=== PATIENT | female | born 1975 | race Caucasian/White ===

== ENCOUNTER → 2018-01-01 | Outpatient (CLI) | payer BC ==
[2018-01-01 14:41] VITALS: BP 133/77; PULSE 88; RESP 14; TEMP 98.2; BMI 42.4
--- NOTE | 2018-01-01 15:16 | P.HPBAR ---
Bariatric H&P - History & Physicial H&P Date: 01/01/18 History & Physicial: Visit/CC: band adjustment Patient initial contact: Initial weight: 113.398 kg Initial weight in pounds: 250.00 Height: 5 ft 4 in Initial BMI: 42.9 Last weight: Current weight: 112.037 kg Current weight in pounds: 247.00 Current BMI: 42.4 [place] body weight (based on NIH guidelines): 54.431 kg Excess body weight loss: 2.3% The patient is a 42 year-old F who presents for Bariatric Assessment. Patient presents today for lab band follow. She's had issues with dysphagia and GERD for several years. 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), lap band placed 2007 , panniculectomy 2005 Past Anesthesia/Blood Transfusion Reactions: Postoperative Nausea & Vomiting ( PONV) Additional Past Anesthesia/Blood Transfusion Reaction / Comm: NO blood transfusions to date Past Psychological History: ADD/ADHD, Anxiety, Depression Additional Psychological History / Comment(s): Takes cymbalta, abilify, buspar , ativan, adderall Smoking Status: Current every day smoker Past Alcohol Use History: None Reported Additional Past Alcohol Use History / Comment(s): 1 pack/day x 14 years Past Drug Use History: None Reported Surgical - Exam Vital Signs Temp Pulse Resp BP 98.2 F 88 14 133/77 01/01/18 14:22 01/01/18 14:22 01/01/18 14:22 01/01/18 14:22 - General well developed, no distress - Eyes PERRL - ENT normal pinna - Neck no masses - Respiratory normal expansion - Cardiovascular Rhythm: regular - Abdomen Abdomen: soft, non tender Bariatric Assessment & Plan Plan: The patient's lap band was adjusted. 5 mL remove her band. She currently is 0 the band. She will follow-up in 4 weeks. Bariatric Checklist Checklist: Plan: Checklist: EGD: 1. Hiatal hernia: 2. H. Pylori: HgbA1c: Vitamin D: Smoking: Current every day smoker Primary care physician referral: sylvain Carrillo ([address] [facility]) Psychiatry clearance: Cardiology clearance: Sleep study: Diet journal: VTE risk score: VTE risk level: Rehab needs at discharge:
[2018-01-01 15:44] LABS: HCT 39.2 % (34.0-46.0); HGB 12.2 gm/dL (11.4-16.0); Hypochromasia Slight; MCH 23.6 pg (25.0-35.0); MCV 75.9 fL (80.0-100.0); Mean Platelet Volume 6.7; Microcytosis Slight; Platelet Count 405 k/uL (150-450); RBC 5.17 m/uL (3.80-5.40); RDW 15.4 % (11.5-15.5); WBC 9.9 k/uL (3.8-10.6)
[2018-01-01 15:55] LABS: ALT 40 U/L (9-52); AST 23 U/L (14-36); Albumin 4.1 g/dL (3.5-5.0); Alkaline Phosphatase 88 U/L (38-126); Anion Gap 9 mmol/L; Blood Urea Nitrogen 9 mg/dL (7-17); Calcium 9.9 mg/dL (8.4-10.2); Carbon Dioxide 26 mmol/L (22-30); Chloride 104 mmol/L (98-107); Glucose 83 mg/dL (74-99); Potassium 4.3 mmol/L (3.5-5.1); Sodium 139 mmol/L (137-145); Total Bilirubin 0.3 mg/dL (0.2-1.3); Total Protein 6.8 g/dL (6.3-8.2)
[2018-01-02 01:36] LABS: Iron Saturation 6.23 (12.00-45.00)
[2018-01-02 01:44] LABS: Folate, Serum 13.6 ng/mL; Vitamin D 25 Hydroxy 68.3 ng/mL (30.0-100.0)
[2018-01-03 09:05] LABS: Vitamin A 37 ug/dL (38-106)
[2018-01-03 09:29] LABS: Vitamin B1 60 ug/L (38-122)
== END | disposition home or self-care (01) ==
LOC: BARWHC3 13:49
PROVIDERS: ATTEND Surgery
DX: Z46.51 Encounter for fitting and adjustment of gastric lap band (principal); K21.9 Gastro-esophageal reflux disease without esophagitis; F90.1 Attention-deficit hyperactivity disorder, predominantly hyperactive type; F41.9 Anxiety disorder, unspecified; F32.9 Major depressive disorder, single episode, unspecified; F17.200 Nicotine dependence, unspecified, uncomplicated; Z90.89 Acquired absence of other organs; Z98.84 Bariatric surgery status; Z98.890 Other specified postprocedural states; Z96.652 Presence of left artificial knee joint; Z79.899 Other long term (current) drug therapy
CPT/HCPCS: 36415; 80053; 82306; 82607; 82746; 83540; 83550; 84134; 84425; 84443; 84590; 85027; 99202

== ENCOUNTER → 2018-03-05 | Outpatient (CLI) | payer BC ==
[2018-03-05 14:47] VITALS: BP 131/72; PULSE 98; TEMP 99.2; BMI 45.2
--- NOTE | 2018-03-05 15:21 | P.HPBAR ---
Bariatric H&P - History & Physicial H&P Date: 03/05/18 History & Physicial: Visit/CC: band fill Patient initial contact: Initial weight: 113.398 kg Initial weight in pounds: 250.00 Height: 5 ft 4 in Initial BMI: 42.9 Last weight: Current weight: 119.522 kg Current weight in pounds: 263.50 Current BMI: 45.2 T[place] body weight (based on NIH guidelines): 54.431 kg Excess body weight loss: The patient is a 43 year-old F who presents for Bariatric Assessment. She presents for lap band adjustment. She is currently hungry and is requesting a fill of her LAP-BAND. 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), lap band placed 2007 , panniculectomy 2005 Past Anesthesia/Blood Transfusion Reactions: Postoperative Nausea & Vomiting ( PONV) Additional Past Anesthesia/Blood Transfusion Reaction / Comm: NO blood transfusions to date Past Psychological History: ADD/ADHD, Anxiety, Depression Additional Psychological History / Comment(s): Takes cymbalta, abilify, buspar , ativan, adderall Smoking Status: Current every day smoker Past Alcohol Use History: None Reported Additional Past Alcohol Use History / Comment(s): 1 pack/day x 14 years Past Drug Use History: None Reported Surgical - Exam Vital Signs Temp Pulse BP 99.2 F 98 131/72 03/05/18 14:31 03/05/18 14:31 03/05/18 14:31 - General well developed, no distress - Abdomen Abdomen: soft, tender Bariatric Assessment & Plan Plan: Patient LAP-BAND was adjusted. She has 3 mL added to her band. She'll follow- up in 4 weeks. Bariatric Checklist Checklist: Plan: Checklist: EGD: 1. Hiatal hernia: 2. H. Pylori: HgbA1c: Vitamin D: Smoking: Current every day smoker Primary care physician referral: sylvain Carrillo ([address] [facility]) Psychiatry clearance: Cardiology clearance: Sleep study: Diet journal: VTE risk score: VTE risk level: Rehab needs at discharge:
== END | disposition home or self-care (01) ==
LOC: BARWHC3 14:18
PROVIDERS: ATTEND Surgery
DX: Z46.51 Encounter for fitting and adjustment of gastric lap band (principal); T73.0XXA Starvation, initial encounter; F17.210 Nicotine dependence, cigarettes, uncomplicated; F32.9 Major depressive disorder, single episode, unspecified; F41.9 Anxiety disorder, unspecified; F90.9 Attention-deficit hyperactivity disorder, unspecified type; Z98.84 Bariatric surgery status; Z90.89 Acquired absence of other organs; Z96.652 Presence of left artificial knee joint; Z98.890 Other specified postprocedural states
CPT/HCPCS: 99212